=== PATIENT | male | born 1945 | race Caucasian/White ===

== ENCOUNTER → 2023-04-16 15:18 | Outpatient (BNVA) | payer MEDICARE, SELFPAY | PROVIDERS: PCP Internal Medicine; Visit Provider Neurological Surgery | DX: M47.12 Other spondylosis with myelopathy, cervical region (principal) | CPT/HCPCS: 99212 ==

== ENCOUNTER 2023-05-21 09:53 | Outpatient (AMB) | payer MEDICARE, SELFPAY ==
--- NOTE | 2023-05-21 09:57 | HO.SPINEOV ---
Intake Intake Visit Reasons: MRI follow up Intake Note: Mr. Forbes is here today to follow up MRI results. MRI done @ [facility]. 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 He underwent an MRI of the cervical spine. The MRI shows moderate to severe spinal stenosis C6-7 without myelomalacia. I repeated an extensive history but I can not reproduce any significant symptoms of cervical myelopathy. His exam is benign without hyperreflexia. Therefore I decided not to offer surgery. He will return to move office if symptoms of cervical myelopathy developed. I spent 20 minutes in this consult for preparation, review of imaging and discussing plan of Thank you for letting me take care of your patient. Tyson Hansen MD, PhD Spine Fellowship Trained Neurosurgeon Director, [facility] Coding Level of Care Code Est Pt Level 3 (13024) Diagnoses Cervical arthritis with myelopathy M47.12
== END 2023-05-21 10:28 | disposition home or self-care (01) ==
PROVIDERS: PCP Internal Medicine; Visit Provider Neurological Surgery
DX: M47.12 Other spondylosis with myelopathy, cervical region (principal)
CPT/HCPCS: 99213

== ENCOUNTER → 2023-05-21 09:53 | Outpatient (BNVA) | payer MEDICARE, SELFPAY | PROVIDERS: PCP Internal Medicine; Visit Provider Neurological Surgery | DX: M47.12 Other spondylosis with myelopathy, cervical region (principal) | CPT/HCPCS: 99212 ==

== ENCOUNTER 2023-10-08 13:36 | Outpatient (AMB) | payer MEDICARE, SELFPAY ==
--- NOTE | 2023-10-08 13:50 | A.SPINEOV_ITS ---
Intake Intake Visit Reasons: neck and back pain possible surgical discussion Intake Note: Mr. Forbes is here today c/o neck and back pain. 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 To recap Naldo had a cervical MRI completed at [facility] which showed moderate to severe spinal stenosis C6-7 without myelomalacia. He had previously discussed the possibility of having this level addressed via fusion if he were to become symptomatic in the future. He returns today reporting new onset of bilateral anterior thigh numbness. He states that this numbness is intermittent and can be induced with prolonged walking or sitting in a certain position. He states that there is no pain, burning, or tingling associated with this numbness. He does report that waking up in the morning and stretching helps to alleviate his symptoms, and that prolonged stasis aggravates his symptoms. He has been utilizing dnla-sos-ocjlums Tylenol/ibuprofen and edible cannabis in order to help alleviate his symptoms. He has tried at home exercise programs without significant relief of symptoms. He is a nonsmoker and does not use tobacco products. EXAM: On exam the patient has 5/5 strength in his upper and lower extremities. He has decreased sensation reported over his anterior proximal thighs. The rest of his sensation is grossly intact. His reflexes are 2+ and intact. (-) Lai's, (-) clonus, (-) Babinski's, (-) straight leg raise bilaterally. IMAGING: The attending neurosurgeon Dr. Hansen and I reviewed Naldo's cervical MRI from earlier this year completed at [facility]. He has multilevel fusion of the cervical spine, and moderate to severe central canal stenosis at C6-7. No myelomalacia. PLAN: After extensive discussion with Naldo regarding potential surgical interventions/preservation of current status and outcomes of surgery, Dr. Hansen decided to send him for a cervical CT scan to ascertain if there is auto fusion at C6-7. Dr. Hansen is willing to offer the patient a C6-7 ACDF if there is no auto fusion at this level. Total amount of time spent in this visit was 45 minutes in discussion of symptoms, cervical MRI imaging results and subsequent plan of care Grant Pitrat PA-C Tyson Pennings MD,PhD [facility] Coding Level of Care Code Est Pt Level 5 (63109) Diagnoses Cervical arthritis with myelopathy M47.12
== END 2023-10-08 14:36 | disposition home or self-care (01) ==
PROVIDERS: PCP Internal Medicine; Visit Provider Neurological Surgery
DX: M47.12 Other spondylosis with myelopathy, cervical region (principal)
CPT/HCPCS: 99215

== ENCOUNTER → 2023-10-08 13:36 | Outpatient (BNVA) | payer MEDICARE, SELFPAY | PROVIDERS: PCP Internal Medicine; Visit Provider Neurological Surgery | DX: M47.12 Other spondylosis with myelopathy, cervical region (principal) | CPT/HCPCS: 99212 ==

== ENCOUNTER 2023-11-14 07:28 | Outpatient (REF) | payer MEDICARE, SELFPAY ==
--- NOTE | ~2023-11-14 | CT_ITS ---
CT CERVICAL SPINE WITHOUT CONTRAST CLINICAL INFORMATION: Spondylosis with myelopathy. Cervical region. COMPARISON: None available. TECHNIQUE: A multidetector CT acquisition of the cervical spine is obtained without contrast. This CT examination was performed using dose optimization techniques as appropriate, variously including the following: *Automated exposure control *Adjustment of mA and/or kV according to patient size (this includes techniques or standardized protocols for targeted exams where dose is matched to indication/reason for exam; i.e. extremities or head) *Use of iterative reconstruction technique FINDINGS: There is reversal the cervical lordosis. There is mild anterior subluxation of C2 on C3 and C4 on C5. There is severe disc volume loss at C3-C4, C4-C5, C5-C6, C6-C7, and C7-T1. There are large multilevel endplate osteophytes. There is vacuum phenomenon at C4-C5. Irregular degenerative endplate signal changes throughout the cervical spine. There are no acute fractures and there are no acute subluxations. There are degenerative changes involving the atlantooccipital joints bilaterally. There is atherosclerotic calcification involving the carotid bifurcations bilaterally. The imaged lung apices are clear. Uncovertebral joint spurring and advanced facet arthropathy result in severe bilateral C3-C4, severe bilateral C4-C5, moderate bilateral C5-C6, and severe right C6-C7 bony foraminal stenosis. Suspected multilevel central canal stenosis that may be greatest at the C5-C6 and C6-C7 levels, not well assessed due to significant artifact obscuring the central canal at these levels. CT/CT cervical spine wo IV con IMPRESSION: - Advanced cervical spondylosis with suspected multilevel central canal stenosis that may be greatest at the C5-C6 and C6-C7 levels, not well assessed due to significant artifact obscuring the central canal at these levels. Given the clinical history of myelopathy, a cervical spine MRI would be helpful in further assessment. If MRI is contraindicated, a cervical spine CT myelogram could be obtained. - Uncovertebral joint spurring and advanced facet arthropathy result in severe bilateral C3-C4, severe bilateral C4-C5, moderate bilateral C5-C6, and severe right C6-C7 bony foraminal stenosis. - There is a cervical kyphosis. There are advanced degenerative changes involving the atlantooccipital articulations bilaterally.
== END 2023-11-14 07:29 | disposition home or self-care (01) ==
LOC: HO.CT 07:28
PROVIDERS: PCP Internal Medicine; Visit Provider Neurological Surgery
DX: M47.12 Other spondylosis with myelopathy, cervical region (principal)
CPT/HCPCS: 72125